=== PATIENT | female | born 1985 | race Caucasian/White ===

== ENCOUNTER 2022-10-12 10:23 | Emergency (ER) | payer OTHER ==
[2022-10-12] MEDS ORDERED: Ibuprofen 200 MG Tab PO STA (11:27)
== END 2022-10-12 12:03 | disposition home or self-care (01) ==
LOC: VM.ED 10:23
DX: S43.401A Unspecified sprain of right shoulder joint, initial encounter (principal); Z88.1 Allergy status to other antibiotic agents; Z91.041 Radiographic dye allergy status; X50.1XXA Overexertion from prolonged static or awkward postures, initial encounter
CPT/HCPCS: 73030-RT; 73060-RT; 99283; A9270-GY